=== PATIENT | female | born 1935 | race African-American/Black ===

== ENCOUNTER 2016-09-19 09:58 | Emergency (ER) | payer MEDICARE, OTHER ==
[~2016-09-19] VITALS: Ht 162.6 cm; Wt 70.0 kg
[~2016-09-19 09:58] MED LIST: ADVAIR DISK1 INH; AMOXICILLIN500 MG PO; ASPIRIN EC81 MG PO; AUGMENTIN500TAB PO; CALTRATE 600 PO; CEPHALEXIN500 MG PO; CIPRO500 MG OR; CLONIDINE0.1 MG PO; ENALAPRIL10 MG PO; FEOSOL65 MG PO; FERR SULFATE325 MG PO; HAIR/SKIN/ PO; HARD NAILS PO; HYDRALAZINE25 MG PO; HYDROCHLOROTH12.5 M1 PO; LISINOPRIL10 MG PO; METOPROL TAR100 M1 PO; METOPROL TAR100 MG PO; METOPROLOL TAR100 MG PO; METOPROLOL50 MG PO; NAPROSYN500 MG OR; NITRO-DUR0.4 MG/HR TD; NORCO1 TA1 PO; OMEPRAZOLE20 MG PO; PAROXETINE20 MG PO; PRILOSEC20 MG OR; SINGULAIR10 MG PO; VASOTEC20 MG OR; WOMEN'S ONE PO; ZITHROMAX250 MG PO
[2016-09-19 11:19] LABS: URINE BILIRUBIN - DIPSTICK NEGATIVE (NEGATIVE); URINE BLOOD DIPSTICK NEGATIVE (NEGATIVE); URINE CLARITY CLEAR; URINE COLOR YELLOW; URINE GLUCOSE - DIPSTICK NEGATIVE (NEGATIVE); URINE KETONE NEGATIVE (NEGATIVE); URINE LEUK ESTERASE NEGATIVE (NEGATIVE); URINE NITRITE - DIPSTICK NEGATIVE (Negative); URINE PROTEIN - DIPSTICK NEGATIVE (NEG-TRACE); URINE UROBILINOGEN - DIPSTICK 0.2 E.U./dL (0.2)
[2016-09-19 11:20] LABS: HEMATOCRIT 41.8 % (37.0-47.0); HEMOGLOBIN 13.5 g/dl (12.0-16.0); IMMATURE GRANULOCYTES 0.3 % (0.0-1.0); MEAN CELL VOLUME 90.1 fL CALC (80.0-100.0); MEAN CORPUSCULAR HGB 29.1 pG CALC (26.0-32.0); MEAN CORPUSCULAR HGB CONC 32.3 g/L CALC (32.0-36.0); NEUT# 1.61 thou/uL (2.00-7.15); RED BLOOD COUNT 4.64 mill/uL (4.20-5.60); RED CELL DISTRI WIDTH 13.6 % (11.5-15.5)
[2016-09-19 11:29] LABS: ALBUMIN 4.7 g/dL (3.2-5.0); ALKALINE PHOSPHATASE 65 u/l (38-126); ANION GAP 16 (6-22 (CALC)); BILIRUBIN, TOTAL 0.5 mg/dL (0.0-1.4); BUN 16 mg/dL (8-23); BUN/CREATININE RATIO 21 (12-20 (CALC)); CALCIUM 9.8 mg/dL (8.4-10.2); CARBON DIOXIDE 28 mmol/l (22-30); CHLORIDE 100 mmol/l (95-108); CREATININE 0.7 mg/dL (0.5-1.0); GFR > 60 ML/MIN (>=60 (CALC)); GFR FOR AFR.AMER. > 60 ML/MIN (>=60 (CALC)); GLUCOSE 87 mg/dL (82-115); SGOT/AST 49 u/l (9-36); SGPT/ALT 46 u/l (11-66); SODIUM 139 mmol/l (137-146); TOTAL PROTEIN 8.7 g/dL (6.3-8.2)
[2016-09-19 11:46] LABS: MYOGLOBIN 52 ng/mL (0 - 62)
[2016-09-19] MEDS ORDERED: PREDNISONE10 MG PO (12:39)
[2016-09-19] MEDS ORDERED: ZITHROMAX250 MG PO (12:39)
[2016-09-19] MEDS ORDERED: TESSALON PER100 MG PO (12:39)
[2016-09-19 12:47] VITALS: BP 108/74
== END 2016-09-19 12:58 | disposition home or self-care (01) ==
LOC: ED 09:58
PROVIDERS: Emergency Medicine
DX: J40 Bronchitis, not specified as acute or chronic (principal); R05 Cough; R06.02 Shortness of breath; I10 Essential (primary) hypertension

== ENCOUNTER 2017-02-26 16:49 | Emergency (ER) | payer MEDICARE, OTHER ==
[~2017-02-26 16:49] MED LIST changes: +PREDNISONE10 MG PO; +TESSALON PER100 MG PO
== END 2017-02-26 17:10 | disposition left against medical advice (07) ==
LOC: ED 16:49 → LWOBS 17:10 → ED 17:10
DX: Z91.19 Patient's noncompliance with other medical treatment and regimen (principal)

== ENCOUNTER 2017-04-11 19:46 | Emergency (ER) | payer MEDICARE, OTHER ==
[~2017-04-11] VITALS: Ht 162.6 cm; Wt 62.0 kg
[2017-04-11] MEDS ORDERED: ROSUVASTATIN CAL5 MG PO (19:57)
[2017-04-11] MEDS ORDERED: PROAIR HFA108 MCG/AC IN (19:58)
[2017-04-11] MEDS ORDERED: BIOTIN 5000 PO (19:58)
[2017-04-11] MEDS ORDERED: GENTAMICIN0.31 OD (21:56)
[2017-04-11 22:25] VITALS: BP 129/77
== END 2017-04-11 22:24 | disposition home or self-care (01) ==
LOC: ED 19:46
DX: H10.9 Unspecified conjunctivitis (principal); I10 Essential (primary) hypertension; D64.9 Anemia, unspecified; J45.909 Unspecified asthma, uncomplicated

== ENCOUNTER 2017-04-28 19:12 | Emergency (ER) | payer MEDICARE, OTHER ==
[~2017-04-28] VITALS: Ht 162.6 cm; Wt 65.9 kg
[~2017-04-28 19:12] MED LIST changes: +BIOTIN 5000 PO; -FEOSOL65 MG PO; +GENTAMICIN0.31 OD; +PROAIR HFA108 MCG/AC IN; +ROSUVASTATIN CAL5 MG PO
[2017-04-28] MEDS ORDERED: HYDRALAZINE25 MG PO (19:32)
[2017-04-28 21:40] VITALS: BP 138/82
== END 2017-04-28 21:45 | disposition home or self-care (01) ==
LOC: ED 19:12
DX: I10 Essential (primary) hypertension (principal); J45.909 Unspecified asthma, uncomplicated

== ENCOUNTER 2017-10-09 06:41 | Day surgery (SDC) | payer MEDICARE, OTHER ==
[~2017-10-09] VITALS: Ht 162.6 cm; Wt 65.8 kg
[~2017-10-09 06:41] MED LIST changes: +ALPRAZOLAM ER0.5 MG PO; +LATANOPROST0.005 % OU; +NEXIUM 24HR20 MG PO
--- NOTE | 2017-10-09 07:14 | NUR ---
BREATHING TREATMENT GIVEN WITH UD ALBUTEROL USING THE MOUTH PEICE. SPO2 ON RA 98%. HEART RATE 71, R. RATE 16. B. SOUND CLEAR ALL THE WAY. WELL TOLERATED THE [place].
[2017-10-09 09:25] VITALS: BP 135/78
== END 2017-10-09 09:32 | disposition home or self-care (01) ==
LOC: ENDO 06:41 → ORM 08:40 → ENDO 08:40 → ORM 15:15
PROVIDERS: ATTEND Internal Medicine Gastroenterology
PROC: 0DB48ZX Excision of Esophagogastric Junction, Via Natural or Artificial Opening Endoscopic, Diagnostic (ICD-10-PCS; principal; 2017-10-09)
DX: K21.9 Gastro-esophageal reflux disease without esophagitis (principal); K29.50 Unspecified chronic gastritis without bleeding; Q40.2 Other specified congenital malformations of stomach; I10 Essential (primary) hypertension; J45.909 Unspecified asthma, uncomplicated; I71.4 Abdominal aortic aneurysm, without rupture; Z79.899 Other long term (current) drug therapy

== ENCOUNTER → 2018-02-15 | Outpatient (REF) | payer MEDICARE, OTHER ==
[2018-02-15 10:03] LABS: HEMATOCRIT 38.1 % (37.0-47.0); HEMOGLOBIN 12.1 g/dl (12.0-16.0); IMMATURE GRANULOCYTES 0.2 % (0.0-5.0); MEAN CELL VOLUME 91.1 fL CALC (80.0-100.0); MEAN CORPUSCULAR HGB 28.9 pG CALC (26.0-32.0); MEAN CORPUSCULAR HGB CONC 31.8 g/L CALC (32.0-36.0); NEUT# 2.99 thou/uL (2.00-7.15); RED BLOOD COUNT 4.18 mill/uL (4.20-5.60); RED CELL DISTRI WIDTH 13.1 % (11.5-15.5)
[2018-02-15 11:05] LABS: ALKALINE PHOSPHATASE 59 u/l (38-126); ANION GAP 12 (6-22 (CALC)); BILIRUBIN, TOTAL 0.2 mg/dL (0.0-1.4); BUN 21 mg/dL (8-23); BUN/CREATININE RATIO 29 (12-20 (CALC)); CARBON DIOXIDE 31 mmol/l (22-30); CHLORIDE 103 mmol/l (95-108); CREATININE 0.7 mg/dL (0.5-1.0); GFR > 60 ML/MIN (>=60 (CALC)); GFR FOR AFR.AMER. > 60 ML/MIN (>=60 (CALC)); SGOT/AST 36 u/l (9-36); SODIUM 142 mmol/l (137-146); TOTAL PROTEIN 6.9 g/dL (6.3-8.2)
== END | disposition home or self-care (01) ==
LOC: LAB 09:23
PROVIDERS: ATTEND Internal Medicine Geriatric Medicine
DX: I10 Essential (primary) hypertension (principal)

== ENCOUNTER → 2018-07-20 | Outpatient (REF) | payer MEDICARE, OTHER ==
[2018-07-20 10:38] LABS: HEMATOCRIT 39.7 % (37.0-47.0); HEMOGLOBIN 12.4 g/dl (12.0-16.0); IMMATURE GRANULOCYTES 0.4 % (0.0-5.0); MEAN CELL VOLUME 92.5 fL CALC (80.0-100.0); MEAN CORPUSCULAR HGB 28.9 pG CALC (26.0-32.0); MEAN CORPUSCULAR HGB CONC 31.2 g/L CALC (32.0-36.0); NEUT# 3.04 thou/uL (2.00-7.15); RED BLOOD COUNT 4.29 mill/uL (4.20-5.60); RED CELL DISTRI WIDTH 13.2 % (11.5-15.5)
[2018-07-20 11:03] LABS: ALBUMIN 4.5 g/dL (3.2-5.0); ALKALINE PHOSPHATASE 59 u/l (38-126); ANION GAP 13 (6-22 (CALC)); BILIRUBIN, TOTAL 0.4 mg/dL (0.0-1.4); BUN 18 mg/dL (8-23); BUN/CREATININE RATIO 25 (12-20 (CALC)); CALCULATED LDLCHOLESTEROL 68 mg/dL (62-129 (CALC)); CARBON DIOXIDE 33 mmol/l (22-30); CHLORIDE 99 mmol/l (95-108); CHOLESTEROL HDL RATIO 2.9 (<4.4 (CALC)); CREATININE 0.7 mg/dL (0.5-1.0); GFR > 60 ML/MIN (>=60 (CALC)); GFR FOR AFR.AMER. > 60 ML/MIN (>=60 (CALC)); HDL CHOLESTEROL 49 mg/dL (>=40); POTASSIUM 4.3 mmol/l (3.5-5.1); SGOT/AST 33 u/l (9-36); SODIUM 142 mmol/l (137-146); TOTAL CHOLESTEROL 141 mg/dl (0-199); TOTAL PROTEIN 7.3 g/dL (6.3-8.2); TOTAL TRIGLYCERIDES 121 mg/dl (30-149); VLDL CHOLESTROL 24 mg/dl (0-48 (CALC))
== END | disposition home or self-care (01) ==
LOC: LAB 09:45
PROVIDERS: ATTEND Internal Medicine Geriatric Medicine
DX: E78.2 Mixed hyperlipidemia (principal); I10 Essential (primary) hypertension

== ENCOUNTER 2019-05-11 | Emergency (ER) | payer MEDICARE, OTHER ==
[2019-05-11] MEDS ORDERED: CARAFATE1 GM PO (11:31)
[2019-05-11] MEDS ORDERED: RANITIDINE150 M1 PO (11:32)
[2019-05-11] MEDS ORDERED: TESSALON PER100 MG PO (12:19)
[2019-05-11] MEDS ORDERED: AUGMENTIN500TAB PO (12:19)
[2019-05-11] MEDS ORDERED: MEDDOSEPAK PO (12:19)
== END 2019-05-11 12:36 | disposition home or self-care (01) ==
DX: J06.9 Acute upper respiratory infection, unspecified (principal); I10 Essential (primary) hypertension

== ENCOUNTER 2021-05-11 14:52 | Emergency (ER) | payer MEDICARE, OTHER ==
[~2021-05-11] VITALS: Ht 162.6 cm; Wt 70.0 kg
[~2021-05-11 14:52] MED LIST changes: +CARAFATE1 GM PO; +MEDDOSEPAK PO; +RANITIDINE150 M1 PO
[2021-05-11] MEDS ORDERED: CLONIDINE0.1 MG PO (18:00)
[2021-05-11 18:21] VITALS: BP 177/93
== END 2021-05-11 18:50 | disposition home or self-care (01) ==
LOC: ED 14:52
DX: I10 Essential (primary) hypertension (principal); J45.909 Unspecified asthma, uncomplicated; E78.00 Pure hypercholesterolemia, unspecified; I72.9 Aneurysm of unspecified site

== ENCOUNTER 2021-05-12 09:02 | Emergency (ER) | payer MEDICARE, OTHER ==
[~2021-05-12] VITALS: Ht 162.6 cm; Wt 78.0 kg
[2021-05-12 10:13] VITALS: BP 183/99
== END 2021-05-12 10:13 | disposition home or self-care (01) ==
LOC: ED 09:02
DX: I10 Essential (primary) hypertension (principal); J45.909 Unspecified asthma, uncomplicated; E78.00 Pure hypercholesterolemia, unspecified

== ENCOUNTER 2021-12-20 00:05 | Emergency (ER) | payer MEDICARE, OTHER ==
[2021-12-20] VITALS (17 sets, daily range): BP systolic 99–186; BP diastolic 66–106
[~2021-12-20] VITALS: Ht 162.6 cm; Wt 63.0 kg
[2021-12-20 00:52] LABS: HEMATOCRIT 34.8 % (37.0-47.0); HEMOGLOBIN 11.6 g/dl (12.0-16.0); IMMATURE GRANULOCYTES 0.2 % (0.0-5.0); MEAN CELL VOLUME 90.4 fL CALC (80.0-100.0); MEAN CORPUSCULAR HGB 30.1 pG CALC (26.0-32.0); MEAN CORPUSCULAR HGB CONC 33.3 g/dL CAL (32.0-36.0); NEUT# 3.39 thou/uL (2.00-7.15); RED BLOOD COUNT 3.85 mill/uL (4.20-5.60); RED CELL DISTRI WIDTH 12.7 % (11.5-15.5)
[2021-12-20] MEDS ORDERED: HYDROCHLOROT12.5 M1 PO (00:59)
[2021-12-20] MEDS ORDERED: LISINOPRIL10 MG PO (01:00)
[2021-12-20] MEDS ORDERED: METOPROL TAR25 MG PO (01:02)
[2021-12-20 01:04] LABS: URINE BILIRUBIN - DIPSTICK NEGATIVE (NEGATIVE); URINE BLOOD DIPSTICK NEGATIVE (NEGATIVE); URINE COLOR YELLOW; URINE GLUCOSE - DIPSTICK NEGATIVE (NEGATIVE); URINE KETONE NEGATIVE (NEGATIVE); URINE LEUK ESTERASE NEGATIVE (NEGATIVE); URINE PROTEIN - DIPSTICK NEGATIVE (NEG-TRACE); URINE SPECIFIC GRAVITY <=1.005; URINE UROBILINOGEN - DIPSTICK 0.2 E.U./dL (0.2)
[2021-12-20] MEDS ORDERED: TIMOLOL 0.5%5 ML OU (01:04)
[2021-12-20] MEDS ORDERED: SYSTANE BALANCE REST OU (01:05)
[2021-12-20 01:06] LABS: ALKALINE PHOSPHATASE 62 u/l (38-126); BILIRUBIN, TOTAL 0.3 mg/dL (0.0-1.4); BUN 14 mg/dL (8-23); BUN/CREATININE RATIO 23 (12-20 (CALC)); CARBON DIOXIDE 31 mmol/l (22-30); CHLORIDE 97 mmol/l (95-108); CREATININE 0.6 mg/dL (0.5-1.0); GFR FOR AFR.AMER. > 60 ML/MIN (>=60 (CALC)); GFR OTHER RACES > 60 ML/MIN (>=60 (CALC)); POTASSIUM 3.8 mmol/l (3.5-5.1); SGOT/AST 36 u/l (9-36); TOTAL PROTEIN 6.7 g/dL (6.3-8.2)
[2021-12-20] MEDS ORDERED: ALPRAZOLAM0.25 MG PO (01:06)
[2021-12-20 01:07] LABS: ANION GAP 10 (6-22 (CALC)); SODIUM 134 mmol/l (137-146)
[2021-12-20 01:07] LABS: URINE NITRITE - DIPSTICK NEGATIVE (Negative)
== END 2021-12-20 02:30 | disposition home or self-care (01) ==
LOC: ED 00:05
PROVIDERS: Family Medicine
DX: I10 Essential (primary) hypertension (principal); J45.909 Unspecified asthma, uncomplicated; E78.00 Pure hypercholesterolemia, unspecified; H40.9 Unspecified glaucoma